=== PATIENT | female | born 1975 | race Caucasian/White ===

== ENCOUNTER 2018-01-04 08:10 | Day surgery (SDC) | payer OTHER ==
[~2018-01-04] VITALS: Ht 157.5 cm; Wt 79.8 kg
[2018-01-04 09:03] LABS: HEMATOCRIT 36.7 % (36.0-46.0); HEMOGLOBIN 12.5 G/DL (11.9-15.5); MCHC 34.1 G/DL (30.0-36.0); MCV 91.1 FL (83-99); PLATELET COUNT 335 K/uL (156-360); RBC DIS.WIDTH-CV 12.7 % (11.8-14.6); RBC DIS.WIDTH-SD 42.5 % (39-53); RED BLOOD COUNT 4.03 M/uL (3.80-5.20); WHITE BLOOD COUNT 23.4 K/uL (4.1-10.2)
[2018-01-04 09:13] LABS: CHLORIDE 104 mEq/L (99-109); POTASSIUM 3.9 mEq/L (3.7-5.4); SODIUM 139 mEq/L (136-147)
[2018-01-04 09:15] LABS: GLUCOSE 131 mg/dL (70-99)
[2018-01-04 09:18] LABS: CREATININE 0.8 mg/dL (0.6-1.3); GFR ESTIMATE (CALCULATED) > 59 mL/min/
[2018-01-04 09:19] LABS: UREA NITROGEN (BUN) 10 mg/dL (9-23)
[2018-01-04 09:27] LABS: QUANTITATIVE HCG < 4.0 MIU/ML
[2018-01-04 09:46] LABS: APPEARANCE CLOUDY ((CLEAR)); BILIRUBIN MODERATE; BLOOD SMALL; COLOR AMBER ((YELLOW)); GLUCOSE (STRIP) NEGATIVE; KETONES NEGATIVE; LEUKOCYTES NEGATIVE; NITRITE NEGATIVE; PROTEIN (STRIP) 100; SPECIFIC GRAVITY 1.038 (1.000-1.030)
[2018-01-04 09:48] LABS: ICTOTEST ND
[2018-01-04 10:11] LABS: BACTERIA RARE /HPF; EPITHELIAL CELLS 2+ /HPF; MUCUS 3+ /LPF; RED BLOOD CELLS NONE SEEN /HPF (0-5); WHITE BLOOD CELLS 0-5 /HPF (0-5)
[2018-01-04] MEDS ORDERED: LO LOESTRIN FE1 EACH PO (14:58)
[2018-01-04] MEDS ORDERED: LEXAPRO10 MG PO (14:59)
[2018-01-04] MEDS ORDERED: ULTRAM50 MG PO (14:59)
[2018-01-04] MEDS ORDERED: ADVIL200 MG PO (14:59)
[2018-01-04] MEDS ORDERED: PROBIOTIC1 EAC1 PO (15:00)
[2018-01-04] MEDS ORDERED: DIGESTIVE ENZY1 EAC3 PO (15:00)
[2018-01-04 20:51] VITALS: BP 116/71
[2018-01-05] VITALS (7 sets, daily range): BP systolic 90–105; BP diastolic 55–62
[2018-01-05 09:54] LABS: BASOPHIL (%) 0.2 % (0-1); BASOPHIL COUNT 0.1 K/uL (0-0.1); EOSINOPHIL (%) 0 % (0-5); IMMATURE GRANULOCYTE (%) 0.4 % (0.0-0.7); LYMPHOCYTE (%) 9.3 % (15-42); LYMPHOCYTE COUNT 1.9 K/uL (1.0-2.8); MCH 30.6 PG (29.0-34.0); MCHC 32.8 G/DL (30.0-36.0); MCV 93.3 FL (83-99); MONOCYTE (%) 6.7 % (3-12); MONOCYTE COUNT 1.4 K/uL (0-0.8); NEUTROPHIL (%) 83.4 % (45-76); NEUTROPHIL COUNT 17.1 K/uL (1.8-6.4); PLATELET COUNT 317 K/uL (156-360); RBC DIS.WIDTH-CV 13.1 % (11.8-14.6); RBC DIS.WIDTH-SD 44.5 % (39-53); RED BLOOD COUNT 3.43 M/uL (3.80-5.20); WHITE BLOOD COUNT 20.5 K/uL (4.1-10.2)
[2018-01-05 09:58] LABS: HEMOGLOBIN 10.5 G/DL (11.9-15.5)
[2018-01-06 04:29] VITALS: BP 96/58
[2018-01-06 06:25] LABS: BASOPHIL (%) 0.5 % (0-1); BASOPHIL COUNT 0.1 K/uL (0-0.1); EOSINOPHIL (%) 0.7 % (0-5); EOSINOPHIL COUNT 0.1 K/uL (0-0.3); HEMATOCRIT 33.8 % (36.0-46.0); HEMOGLOBIN 10.8 G/DL (11.9-15.5); IMMATURE GRANULOCYTE (%) 0.6 % (0.0-0.7); LYMPHOCYTE (%) 14.6 % (15-42); LYMPHOCYTE COUNT 2.3 K/uL (1.0-2.8); MCH 29.8 PG (29.0-34.0); MCV 93.4 FL (83-99); MONOCYTE COUNT 1.3 K/uL (0-0.8); NEUTROPHIL (%) 75.6 % (45-76); NEUTROPHIL COUNT 11.9 K/uL (1.8-6.4); PLATELET COUNT 324 K/uL (156-360); RBC DIS.WIDTH-CV 13.1 % (11.8-14.6); RBC DIS.WIDTH-SD 44.9 % (39-53); RED BLOOD COUNT 3.62 M/uL (3.80-5.20); WHITE BLOOD COUNT 15.8 K/uL (4.1-10.2)
[2018-01-06 07:00] VITALS: BP 105/57
[2018-01-06] MEDS ORDERED: HYDROCODON-ACE1 EAC7 PO (10:09)
[2018-01-06] MEDS ORDERED: LEVAQUIN750 MG PO (10:41)
[2018-01-06 16:00] VITALS: BP 99/56
[2018-01-06 23:10] VITALS: BP 109/59
[2018-01-07 07:38] VITALS: BP 103/59
[2018-01-07] MEDS ORDERED: CIPRO500 MG PO (11:12)
== END 2018-01-07 13:55 | disposition home or self-care (01) ==
LOC: EME 08:10 → SDC 16:32 → 2SOUTH 17:51 → 2EAST 17:51 → ENRESERV 17:52 → 2EAST 19:24
PROVIDERS: Physician Assistant; Physician Assistant Medical
PROC: 0D9P7ZZ Drainage of Rectum, Via Natural or Artificial Opening (ICD-10-PCS; principal; 2018-01-04)
DX: K61.1 Rectal abscess (principal); B96.20 Unspecified Escherichia coli [E. coli] as the cause of diseases classified elsewhere; D72.829 Elevated white blood cell count, unspecified; E86.0 Dehydration; F41.9 Anxiety disorder, unspecified
CPT/HCPCS: 71046; 74177; 80048; 81003; 83605; 84702; 85025; 85027; 87205; 93005; 99281; 99285; G0378; J1100; J2250; J2270; J2405; J3010; J7040; J7120; S0074